=== PATIENT | male | born 1960 | race Caucasian/White ===

== ENCOUNTER 2018-05-11 11:11 | Emergency (ER) | payer OTHER ==
[~2018-05-11] VITALS: Ht 167.6 cm; Wt 83.0 kg
[2018-05-11 11:19] VITALS: BP 160/100
[2018-05-11] MEDS ORDERED: INSU100V14 SQ (11:23)
--- NOTE | 2018-05-11 11:23 | NUR ---
ARRIVAL PATIENT ARRIVED TO ED6 VIA GURNEY BY [facility], C/O OF LEFT LOWER BACK PAIN THAT RADIATES TO THE FRONT, WAS SEEN ON SAT IN THE ED IN [place] AND DX WITH A KIDNEY STONE, TODAY UNABLE TO HOLD TYLENOL #3 DOWN, CALLED [facility] TO BRING TO THE ED FOR FURTHE EVAL. NO DISTRESS NOTED.
[2018-05-11] MEDS ORDERED: TORADOL IV STA (11:43)
[2018-05-11] MEDS ORDERED: NS 1000ML 1,000 ML IV STA (11:43)
[2018-05-11 11:51] LABS: BILIRUBIN,URINE NEGATIVE (NEGATIVE); UROBILINOGEN,URINE NORMAL (NEGATIVE)
--- NOTE | 2018-05-11 11:55 | NUR ---
CT PT TAKEN TO CT
[2018-05-11 12:00] LABS: APPEARANCE,URINE CLEAR (CLEAR); UA COLOR YELLOW (YELLOW)
[2018-05-11 12:01] LABS: BASOPHIL % 0.1 % (0.0-0.2); EOSINOPHIL % 0.1 % (0.0-5.0); HEMOGLOBIN 15.3 g/dL (13.9-16.3); LYMPHOCYTES # 0.4 10^3/uL (1.0-4.8); LYMPHOCYTES % 3.7 % (24.0-44.0); MEAN CELL HGB 32.1 pg (26-34); MEAN CELL HGB CONCENTRATION 34.9 g/dL (33-37); MEAN CORP VOLUME 91.8 fL (78-100); MEAN PLATELET VOLUME 10.3 fL (7.8-11.0); MONOCYTES % 8.8 % (5.0-12.0); NEUTROPHIL # 10.1 10^3/uL (1.8-7.7); RED CELL DISTRIBUTION WIDTH 13.4 % (11.5-14.5); WHITE BLOOD CELL 11.6 10^3/uL (4.5-11.0)
--- NOTE | 2018-05-11 12:02 | NUR ---
CT PT BACK FROM CT
[2018-05-11] MEDS ORDERED: TORADOL ONE (12:07)
[2018-05-11] MEDS ORDERED: NS 1000ML 1,000 ML ONE (12:07)
[2018-05-11] MEDS ORDERED: ZOFRAN ONE (12:11)
--- NOTE | 2018-05-11 12:14 | ER.PDOC ---
General Chief Complaint: Male Stated Complaint: LEFT LOWER BACK PAIN Time seen by MD: 12:06 Source: patient Exam Limitations: no limitations History of Present Illness Initial Comments Left flank pain for 3 days. Seen in an ED in [place] 3 days ago for same and was given Tylenol #3, Flomax and a 3rd medication. He was told that he will pass the stone since it is small. Severity/Quality: moderate Radiation: LLQ Associated Symptoms: nausea/vomiting Exacerbated by: nothing Relieved By: nothing Allergies: Coded Allergies: No Known Allergies (Unverified , 05/11/18) Home Meds Reported Medications Insulin Aspart (NOVOLOG) 100 Unit/1 Ml Vial, 30 UNIT SQ BIDM PRN for HYPERGLYCEMIA for 30 Days, VIAL Sliding Scale Insulin BS <200 Give 0 units SQ BS 200-249 Give 8 units SQ BS 250-299 Give 10 units SQ BS 300-349 Give 12 units SQ BS 350-399 Give 14 units SQ BS 400-449 Give 16 units SQ BS 450-500 Give 18 units SQ 05/11/18 Vital Signs First Vital Signs Date Time Temp Pulse Resp B/P (MAP) Pulse Ox O2 Delivery O2 Flow Rate FiO2 05/11/18 11:16 97.9 108 20 97.9 05/11/18 11:17 92 Room Air 05/11/18 11:19 160/100 (120) Last Vital Signs Date Time Temp Pulse Resp B/P (MAP) Pulse Ox O2 Delivery O2 Flow Rate FiO2 05/11/18 11:19 97.9 108 20 160/100 (120) 92 Room Air 97.9 Past Medical History Medical History: diabetes, hypertension Surgical History: cancer surgery Social History Smoking: cigarettes Alcohol Use: none Drug Use: none Constitutional: no symptoms reported EENTM: no symptoms reported Respiratory: no symptoms reported Cardiovascular: no symptoms reported Gastrointestinal: see HPI Genitourinary: see HPI All Other Systems: Reviewed and Negative Physical Exam General Appearance: No Apparent Distress, WD/WN HEENT: PERRL/EOMI, Normal ENT Inspection, TMs Normal, Pharynx Normal Neck: Non-Tender, Full Range of Motion, Supple, Normal Inspection Respiratory: chest non-tender, lungs clear, normal breath sounds, no respiratory distress, no accessory muscle use Cardiovascular: Normal Peripheral Pulses, Regular Rate, Rhythm, No Edema, No Gallop, No JVD, No Murmur Gastrointestinal: Normal Bowel Sounds, No Organomegaly, No Pulsatile Mass, Tenderness (LLQ) Back: Normal Inspection, No CVA Tenderness, No Vertebral Tenderness Extremities: Normal Range of Motion, Non-Tender, Normal Inspection, No Pedal Edema, No Calf Tenderness, Normal Capillary Refill, Pelvis Stable Neurologic/Psychiatric: die set up worker II-XII NML as Tested, No Motor/Sensory Deficits, Alert, Normal Mood/Affect, Oriented x 3 Skin: Normal Color, Warm/Dry Lymphatic: No Adenopathy Results/Orders Results/Orders Laboratory Tests Test 05/11/18 11:43 05/11/18 11:57 Urine Collection Type VOID Urine Color YELLOW (YELLOW) Urine Appearance CLEAR (CLEAR) Urine Bilirubin NEGATIVE MG/DL (NEGATIVE) Urine Ketones NEGATIVE (NEGATIVE) Urine Specific [place] 1.015 (1.005-1.035) Urine pH 8 (5.0-6.0) Urine Protein NEGATIVE (NEGATIVE) Urine Urobilinogen NORMAL (NEGATIVE) Urine Nitrate NEGATIVE (NEGATAIVE) Urine Leukocyte Esterase NEGATIVE (NEGATIVE) Urine Blood 150 3+ (NEGATIVE) Urine RBC 5-10 RBC/HPF (NONE SEEN) Urine WBC NONE SEEN WBC/HPF (0-2) Urine Squamous Epithelial Cells RARE #/HPF (FEW) Urine Amorphous Sediment SMALL (NONE SEEN) Urine Bacteria NONE SEEN (NONE SEEN) Urine Glucose NORMAL (NEGATIVE) White Blood Count 11.6 10^3/uL (4.5-11.0) Red Blood Count 4.77 10^6/uL (4.50-5.90) Hemoglobin 15.3 g/dL (13.9-16.3) Hematocrit 43.8 % (37.0-53.0) Mean Corpuscular Volume 91.8 fL (78-100) Mean Corpuscular Hemoglobin 32.1 pg (26-34) Mean Corpuscular Hemoglobin Concent 34.9 g/dL (33-37) Red Cell Distribution Width 13.4 % (11.5-14.5) Platelet Count 157 10^3/uL (150-400) Mean Platelet Volume 10.3 fL (7.8-11.0) Neutrophils (%) (Auto) 87.0 % (41.0-85.0) Lymphocytes (%) (Auto) 3.7 % (24.0-44.0) Monocytes (%) (Auto) 8.8 % (5.0-12.0) Neutrophils # (Auto) 10.1 10^3/uL (1.8-7.7) Lymphocytes # (Auto) 0.4 10^3/uL (1.0-4.8) Monocytes # (Auto) 1.0 10^3/uL (0.3-0.8) Absolute Immature Granulocyte (auto 0.03 10^3 u/L (0-2) Eosinophils % 0.1 % (0.0-5.0) Basophils % 0.1 % (0.0-0.2) Basophils # 0.0 10^3/uL (0.0-0.1) Eosinophil Count 0.0 10^3/uL (0.0-0.2) Percent Immature Gran (Cell Imm) 0.30 % (0.00-0.50) Progress Progress CT abdomen/pelvis shows 1. 2 mm left UVJ calculus with moderate hydroureteronephrosis and perinephric fat stranding. 2. Small right renal calculus. 3. Left renal cyst. 4. Mild enlargement of the prostate. 5. Left adrenal adenoma. Patient feeling better and pain improved. Course Sepsis Screening Results: Posi: POSITIVE SEPSIS RISK Vitals & review Data Vital Sign - Last 24 Hours 05/11/18 05/11/18 05/11/18 11:16 11:17 11:19 Temp 97.9 97.9 97.9 97.9 97.9 97.9 Pulse 108 108 108 Resp 20 20 20 B/P (MAP) 160/100 (120) Pulse Ox 92 92 O2 Delivery Room Air Room Air Laboratory Tests Test 05/11/18 11:43 05/11/18 11:57 Urine Collection Type VOID Urine Color YELLOW Urine Appearance CLEAR Urine Bilirubin NEGATIVE MG/DL Urine Ketones NEGATIVE Urine Specific [place] 1.015 Urine pH 8 Urine Protein NEGATIVE Urine Urobilinogen NORMAL Urine Nitrate NEGATIVE Urine Leukocyte Esterase NEGATIVE Urine Blood 150 3+ Urine RBC 5-10 RBC/HPF Urine WBC NONE SEEN WBC/HPF Urine Squamous Epithelial Cells RARE #/HPF Urine Amorphous Sediment SMALL Urine Bacteria NONE SEEN Urine Glucose NORMAL White Blood Count 11.6 10^3/uL Red Blood Count 4.77 10^6/uL Hemoglobin 15.3 g/dL Hematocrit 43.8 % Mean Corpuscular Volume 91.8 fL Mean Corpuscular Hemoglobin 32.1 pg Mean Corpuscular Hemoglobin Concent 34.9 g/dL Red Cell Distribution Width 13.4 % Platelet Count 157 10^3/uL Mean Platelet Volume 10.3 fL Neutrophils (%) (Auto) 87.0 % Lymphocytes (%) (Auto) 3.7 % Monocytes (%) (Auto) 8.8 % Neutrophils # (Auto) 10.1 10^3/uL Lymphocytes # (Auto) 0.4 10^3/uL Monocytes # (Auto) 1.0 10^3/uL Absolute Immature Granulocyte (auto 0.03 10^3 u/L Eosinophils % 0.1 % Basophils % 0.1 % Basophils # 0.0 10^3/uL Eosinophil Count 0.0 10^3/uL Percent Immature Gran (Cell Imm) 0.30 % Current Medications Medications (Trade) Dose Ordered Sig/Kelly PRN Reason Start Time Stop Time Status Last Admin Sodium Chloride 1,000 ml @ 1,200 mls/hr Q50M STAT 05/11/18 11:43 05/11/18 12:32 Departure Time of Disposition: 13:07 Disposition: 01 HOME, SELF-CARE Impression: Primary Impression: Ureteral calculus, left Additional Impression: Renal colic on left side Condition: Stable Referrals: PCP,UNKNOWN (PCP) PRIMARY CARE PROVIDER Additional Instructions: Continue home medications Push fluids F/U with Dr. Peña in 2-3 days if no improvement. Duration or Time Spent with Pa: 60 mins Problem Qualifiers LISSETT KOO MD May 11, 2018 12:14
[2018-05-11] MEDS ORDERED: ZOFRAN IV STA (12:15)
--- NOTE | 2018-05-11 12:18 | DIREP ---
PROCEDURE:CT ABDOMEN/PELVIS W/O CONTRAST COMPARISON:None. INDICATIONS:Left flank pain, hx renal stone TECHNIQUE:Axial images were created through the abdomen and pelvis without intravenous contrast material. No oral contrast was administered. Sagittal and coronal reconstructions were performed from source images. FINDINGS: LUNG BASES:Normal. No visible pulmonary or pleural disease. LIVER:Normal. No significant liver lesions are identified. BILIARY:Normal. No visible dilatation or calcification. PANCREAS:Normal. No lesion, fluid collection, ductal dilatation, or atrophy. SPLEEN:Normal. No enlargement or focal lesion. ADRENALS:2.3 cm low-density mass present in the left adrenal consistent with an adenoma. Right adrenal appears unremarkable. URINARY TRACT:2 mm calculus present at the left ureterovesical junction with associated moderate ureteral dilatation and hydronephrosis. Left perinephric fat stranding is present. There is a small calculus in the upper pole of the right kidney. There is an exophytic cyst arising from the anterolateral cortex of the middle pole of the left kidney, measuring 4.7 cm. AORTA/VASCULAR:There are aortic atherosclerotic calcifications present. No aneurysm. RETROPERITONEUM:Normal. No mass or adenopathy. BOWEL/MESENTERY:The appendix is visualized and appears normal. There is no intestinal obstruction, free fluid, free air or mesenteric inflammatory changes. ABDOMINAL WALL:Normal. No mass or hernia. PELVIC ORGANS:The prostate is mildly enlarged. BONES:Normal for age. No bony lesion or acute fracture. OTHER:Negative. CONCLUSION: 1. 2 mm left UVJ calculus with moderate hydroureteronephrosis and perinephric fat stranding. 2. Small right renal calculus. 3. Left renal cyst. 4. Mild enlargement of the prostate. 5. Left adrenal adenoma. Dictated by: Odell Cole M.D. on 05/11/2018 at 12:09 PM
[2018-05-11 12:21] VITALS: BP 144/93
[2018-05-11 12:23] LABS: CALCIUM 8.5 mg/dL (8.4-10.5); CARBON DIOXIDE 29.9 mmol/L (20.0-32)
--- NOTE | 2018-05-11 13:20 | NUR ---
IV 18G IV D/C'D TIP INTACT TO LEFT AC, NO SIGN OF INFILTRATION NOTED.
[2018-05-11 13:24] VITALS: BP 144/93
[2018-05-11 13:29] LABS: DIFFERENTIAL COMMENT NORMAL; LYMPHOCYTE 5 % (25-36); MONOCYTE 7 % (3-9); SEGMENTED NEUTROPHILS 88 % (31-76)
== END 2018-05-11 13:22 | disposition home or self-care (01) ==
LOC: EDBD 11:11 → ER 11:11
DX: N20.1 Calculus of ureter (principal); N23 Unspecified renal colic; E11.9 Type 2 diabetes mellitus without complications; I10 Essential (primary) hypertension; F17.210 Nicotine dependence, cigarettes, uncomplicated; Z98.890 Other specified postprocedural states; Z79.4 Long term (current) use of insulin
CPT/HCPCS: 36415; 74176; 80053; 81000; 85025; 85610; 85730; 96361; 96374; 96375; 99285; J1885; J2405; J7030